=== PATIENT | male | born 1945 | race Caucasian/White ===

== ENCOUNTER 2018-03-16 05:38 | Observation (INO) ==
--- NOTE | 2018-03-10 15:26 | Anesthesiology Consultation ---
Date of Service March 10, 2018 Assessment & Plan (1) Encounter for pre-operative examination: Chart Review Chart Review: Acceptable Risk for Surgery and Patient NOT seen in Pre Admission Testing History Surgery Operation Date: 03/16/18 08:00 Proposed Procedures p Open Right Scrotal/Inguinal Hernia Repair with Mesh - Mason Lyons MD, FACS Height/Weight Height: 5 ft 10 in Weight: 66.678 kg Allergies Allergy/AdvReac Type Severity Reaction Status Date / Time No Known Allergies Allergy Unverified 03/09/18 12:24 Medications Home Medications Medication Instructions Recorded Confirmed Last Taken naproxen 500 mg PO BID PRN 02/03/18 03/09/18 Unknown rosuvastatin 5 mg PO 2XWK 02/03/18 03/09/18 Unknown triamcinolone acetonide 1 applic TOPICAL BID PRN 02/03/18 03/09/18 Unknown multivitamin 1 tab PO DAILY 03/09/18 03/09/18 Unknown oxycodone-acetaminophen 1 tab PO Q6H PRN 03/09/18 03/09/18 Unknown Past Medical History Medical History Hyperlipidemia Incarcerated hernia Past Surgical History Surgical History History of colonoscopy History of herniorrhaphy LEFT INGUINAL HERNIA Social History Smoking Status: Former smoker tobacco type: cigarettes Do You Dip or Chew Tobacco: Yes (1 CAN/ 2 WEEKS (ADVISED)) Smoking End Date: QUIT 40 YEARS AGO Hx Alcohol Use: Yes Alcohol type: beer alcohol intake frequency: a few times a week Hx Substance Use: No substance use type: does not use Testing Electrocardiogram Date: 02/03/18 Findings: + NSR @ (76) Laboratory Results 03/07/18 WBC 6.7 H/H 13.1/38.9 PLATELETS 173 SODIUM 130 (discussed with Dr. Nguyen; okay to proceed with surgery without further workup)* POTASSIUM 4.1 CHLORIDE 96 CO2 28 BUN 10 CREATININE 0.7 GLUCOSE 84
[2018-03-16] MEDS ORDERED: LR 15ML/HR IV SCH (06:00)
[2018-03-16] MEDS ORDERED: BACITRACIN INJ 50,000 UNIT VIAL ONE (07:02)
[2018-03-16] MEDS ORDERED: BUPIVACAINE 0.5 % 5 MG/1 ML MPF 30ML VIAL ONE (07:02)
[2018-03-16] MEDS ORDERED: fentaNYL citrate 100 MCG/2 ML VIAL ONE (07:08)
[2018-03-16] MEDS ORDERED: LIDOCAINE HCL 2% 2 ML VIAL/AMP(20MG/ML) INFIL ONE (07:08)
[2018-03-16] MEDS ORDERED: DEXAMETHASONE SOD INJ 4 MG/ML VIAL ONE (07:08)
[2018-03-16] MEDS ORDERED: ONDANSETRON INJ 2 MG/ML 2 ML VIAL ONE (07:08)
[2018-03-16] MEDS ORDERED: NEOSTIGMINE METHYLSULFATE 5 MG/5 ML SYR ONE (07:08)
[2018-03-16] MEDS ORDERED: MIDAZOLAM HCL 1 MG/ML 2ML VIAL ONE (07:08)
[2018-03-16] MEDS ORDERED: PROPOFOL IV EMULSION 10 MG/ML 20 ML VIAL IV ONE (07:08)
[2018-03-16] MEDS ORDERED: GLYCOPYRROLATE 0.2 MG/ML VIAL ONE (07:08)
[2018-03-16] MEDS ORDERED: PHENYLEPHRINE 100MCG/ML 5ML SYR IV PRN (07:21)
[2018-03-16] MEDS ORDERED: ONDANSETRON INJ 2 MG/ML 2 ML VIAL IV PRN ×2 (07:21→09:35)
[2018-03-16] MEDS ORDERED: ePHEDrine sulfate 50 MG/ML AMP IV PRN (07:21)
[2018-03-16] MEDS ORDERED: HYDROmorphone INJ 1 MG/ML SYRINGE IV PRN (07:21)
[2018-03-16] MEDS ORDERED: ATROPINE SULFATE 0.1 MG/ML 10ML SYR IV PRN (07:21)
[2018-03-16] MEDS ORDERED: CEFAZOLIN 1,000 MG/7.5 ML IV PUSH IV ONE (07:23)
--- NOTE | 2018-03-16 07:37 | History & Physical Bridge Note ---
Date of Service March 16, 2018 History & Physical Bridge Note I have examined the patient, reviewed the History & Physical and in the interval since the performance of the History & Physical I have noted the following changes of clinical significance: no changes noted pt marked all questions answered not sure if he completely void will insert luna due to , large size of hernia
[2018-03-16] MEDS ORDERED: CEFAZOLIN 250 MG/ML 1 GM VIAL ONE (08:02)
[2018-03-16] MEDS ORDERED: SODIUM CHLORIDE 0.9% INJ 10 ML VIAL ONE (08:02)
[2018-03-16] MEDS ORDERED: PHENYLEPHRINE 100MCG/ML 5ML SYR ONE (08:02)
[2018-03-16] MEDS ORDERED: ePHEDrine sulfate 50 MG/ML SYR ONE (08:11)
[2018-03-16] MEDS ORDERED: KETOROLAC 30 MG/ML VIAL ONE (09:17)
--- NOTE | 2018-03-16 09:17 | Post Operative Brief Note ---
Immediate Post Op Note v1 Date of Surgery March 16, 2018 Pre & Post Diagnosis Operation Date: 03/16/18 08:00 Pre-Op Diagnosis: Right Scrotal/Inguinal Hernia Post-Op Diagnosis: Right Scrotal Hernia, Indirect LIPOMA CORD Procedure Operation Date: 03/16/18 08:00 Actual Procedures p Right Open Scrotal / Inguinal Hernia Repair with Mesh(RightAND EXCISION LIPOMA CORD - Mason Lyons MD, FACS Surgeon Mason Lyons MD, FACS Tree Topper Maurisio Yates Estimated Blood Loss 20 Findings Consistent with Post-Op Diagnosis Drains Chan Catheter
[2018-03-16] MEDS ORDERED: MoRPHine SULFATE 4 MG/ML 1 ML CARP\\VIAL IV PRN ×4 (09:35→11:28)
[2018-03-16] MEDS ORDERED: OXYCODONE/ACETAMINOPHEN 5mg/325mg TAB PO PRN ×3 (09:35→11:37)
[2018-03-16] MEDS ORDERED: SODIUM CHLORIDE 0.9% 1000ML 1,000 ML IV SCH (09:45)
[2018-03-16] MEDS: fentaNYL citrate 100 MCG/2 ML VIAL IV PRN ×5 (09:47→10:10)
--- NOTE | 2018-03-16 09:50 | Operative Report ---
Post Operative Report Pre & Post Diagnosis Operation Date: 03/16/18 08:00 Pre-Op Diagnosis: Right Scrotal/Inguinal Hernia Post-Op Diagnosis: Right Scrotal Hernia, Indirect lipoma cord Procedure Operation Date: 03/16/18 08:00 Actual Procedures p Right Open Scrotal / Inguinal Hernia Repair with Mesh(Right) excision lipoma cord- Mason Lyons MD, FACS Surgeon Mason Lyons MD, FACS The patient was brought into the operating theater supine position general endotracheal anesthesia Chan catheter was inserted lower abdomen up including the scrotum was prepped Betadine solution and scrubbed and properly draped a timeout was had systemic antibiotics were given preemptive local analgesic 0.5% Marcaine was used to infiltrate the superior iliac crest incision was made parallel to the ligament larger venous complex was ligated divided dissection was taken down to the external Bleich opposed to the external ring more local was used incision was made fascia identifying the nerve trapped in the external ring and we divided we then trimmed up dividing both the nerve since it was then elevated the cord and structures which is quite considerably significant amount of scar tissue chronic inflammation really thickened hernial sac that was going down towards the scrotum once we were able to elevated sufficiently enough to the only way I could work around it was to make an incision in the indirect sac opened it and will we identified that the patient had a probably pounds of omentum down going into the scrotal area we were able then to return to completely into the abdomen held in place there sponge forceps we then dissected out the indirect sac which look like that had a division in the midportion before going to the scrotum likely may been a communicating hydrocele in the past there is no evidence of a hydrocele at this time but was very hard to free up the cord structures from the mesh from the hernial sac to the point of one area in the divided portion of the cord. The viability of the testicle which was quite small we could see to need to be viable. We then resected the hernial sac and left the distal portion in went down to the indirect area ligated space with 2-0 silk suture and divided the indirect sac patient also had a lipoma of the cord which were resected at its base and ligated. The indirect ring was sutured to be the then brought a sheet of Marlex mesh conjoined tendon superiorly shelving portion inferiorly struck the internal ring the could only accommodate the then closed the external Bleich fashion top of the cord and the mesh with 3-0 interrupted silk sutures more local was used subfascially wound was closed with 2-0 Dexon initially reynaldo for skin edges dressing was applied procedure was tolerated well estimated blood loss 20 cc catheter was removed at the end of the procedure addendum Maurisio Yates present throughout the procedure help with exposure retraction and closure Resident Care Spec Maurisio Yates Estimated Blood Loss 20 Findings Consistent with Post-Op Diagnosis Specimens hernia sac lopoma Description of Procedure done I attest to the content of the Intraoperative Record and any orders documented therein. Any exceptions are noted below.
--- NOTE | 2018-03-16 10:28 | Anesthesiology Progress Note ---
Date of Service March 16, 2018 Anesthesia Post Procedure Vital Signs Vital Signs: Temp Pulse Pulse Resp BP Pulse Ox 03/16/18 10:20 37 C 62 18 117/71 97 03/16/18 10:10 63 12 112/65 98 03/16/18 10:00 61 19 110/61 97 03/16/18 09:50 60 19 121/67 99 03/16/18 09:40 68 15 118/66 100 03/16/18 09:34 36.9 C 74 12 129/70 100 03/16/18 06:11 36.5 C 71 18 138/89 98 Pain Intensity Right Groin: Pain Intensity: 4 Notes Mental Status: alert / awake / arousable Patient Amnestic to Procedure: Yes Nausea / Vomiting: adequately controlled Pain: adequately controlled Airway Patency, RR, SpO2: stable & adequate BP & HR: stable & adequate Hydration State: stable & adequate Anesthetic Complications: no major complications apparent
[2018-03-16] MEDS ORDERED: ACETAMINOPHEN 325 MG TAB PO PRN (11:38)
[2018-03-16] MEDS ORDERED: TRIAMCINOLONE ACET 0.1% OINT 15 GM TUBE TOP PRN (13:22)
[2018-03-16] MEDS: LACTATED RINGER'S 1,000 ML IV SCH ×2 (14:03→23:16)
[2018-03-16] MEDS: OXYCODONE/ACETAMINOPHEN 5mg/325mg TAB PO PRN (23:15)
--- NOTE | 2018-03-17 07:17 | Surgery Progress Note ---
Date of Service March 17, 2018 Assessment & Plan (1) Incarcerated inguinal hernia: POD 1 RIH repair pain control better seen with Dr. Lyons recheck later, likely discharge Subjective pain control better, taking 1 Percocet, passing flatus, tolerating diet, voiding ok Physical Exam 2 Vital Signs (Past 24 Hours): Last Vital Signs Temp 36.7 C 03/17/18 03:36 Pulse 71 03/17/18 03:36 Resp 16 03/17/18 03:36 BP 101/66 03/17/18 03:36 Pulse Ox 94 03/17/18 03:36 Gastrointestinal (Abdomen): Inspection/Auscultation: + abdominal surgical incision (some old blood drainaing from in cision/in scrotum) Percussion/ Palpation: abdomen soft
[2018-03-17 07:59] LABS: Basophils # (auto) 0.01 K/uL (0-0.2); Basophils % (auto) 0.1 %; Eosinophils # (auto) 0.13 K/uL (0-0.5); Eosinophils % (auto) 1.1 %; Hematocrit (blood only) 36.4 % (42-52); Hemoglobin 12.4 g/dL (14.0-18.0); Immature Granulocytes # (auto) 0.03 K/uL (0.00-0.02); Immature Granulocytes % (auto) 0.3 %; Lymphocytes # (auto) 1.28 K/uL (1.2-3.4); Lymphocytes % (auto) 11.3 %; Mean Corpuscular Hgb Conc 34.1 g/dL (32-36); Mean Corpuscular Volume 91.5 fL (80-100); Mean Platelet Volume 9.7 fL (7.4-10.4); Monocytes # (auto) 1.49 K/uL (0.11-0.59); Monocytes % (auto) 13.2 %; Neutrophils # (auto) 8.38 K/uL (1.4-6.5); Platelet Count 171 K/uL (130-400); RDW Coefficient of Variation 13.7 % (11.5-14.5); RDW Standard Deviation 45.2 fL (36.4-46.3); Red Blood Count 3.98 M/uL (4.7-6.1); White Blood Count 11.32 K/uL (4.8-10.8)
[2018-03-17] MEDS: OXYCODONE/ACETAMINOPHEN 5mg/325mg TAB PO PRN (08:15)
[2018-03-17 08:31] LABS: BUN Creatinine Ratio 15.4 (10-20); Calcium 8.7 mg/dl (8.5-10.1); Creatinine Clr Calc Pharmacy 60.4 ml/min; Est GFR (Non-African American) 70.8; Potassium 3.6 mmol/L (3.5-5.1)
[2018-03-17] MEDS ORDERED: MULTIVITAMIN TAB PO SCH (09:00)
[2018-03-17] MEDS ORDERED: ROSUVASTATIN CALCIUM 10 MG TAB PO SCH (21:00)
--- NOTE | 2018-03-19 11:57 | Discharge Summary ---
Date of Service March 19, 2018 Admission HPI Per Admitting Provider Mr. Castellano is a 72-year-old male who was admitted to [facility] for pain control following elective open repair inguinal hernia with mesh. Principal Diagnosis Incarcerated Right Inguinal Hernia Discharge Data Allergies Allergy/AdvReac Type Severity Reaction Status Date / Time No Known Allergies Allergy Unverified 03/16/18 06:07 Procedures Performed Operation Date: 03/16/18 08:00 Actual Procedures p Right Open Scrotal / Inguinal Hernia Repair with Mesh(Right) - Mason Lyons MD, FACS Hospital Course (1) Incarcerated inguinal hernia: Operation Date: 03/16/18 08:00 Pre-Op Diagnosis: Right Scrotal/Inguinal Hernia Post-Op Diagnosis: Right Scrotal Hernia, Indirect Inguinal Hernia, lipoma cord Post-operatively, patient was admitted under observation for pain control. No acute changes overnight, pain was better controlled. Patient tolerated regular diet. Voiding without issue. Patient ok for discharge on POD #1. Return precautions reviewed. Both verbal and written discharge instructions provided. Patient to follow-up in General Surgery clinic for staple removal. Total Time Total Time Spent Total Time Spent (In Minutes): 5 Discharge Plan Discharge Items Patient Disposition: Home - Self-Care Reason For Visit: Right Scrotal/Inguinal Hernia Discharge Diagnosis: Right Scrotal/Inguinal Hernia Discharge Goals: Decrease discomfort and Improve function Activity: As commented below Lifting: No more than 10 pounds Bathing Comment: May shower in 24 hrs, but do not soak or scrub your incision. Sexual Activity: Wait until after follow-up appointment Exercise/Sports: Wait until after follow-up appointment Driving/Machine Use: Resume 3 days after discharge Non-emergency contact: Surgeon Call non-emergency contact if: you have any medication questions, your pain is not controlled, your temperature is above 101.5, your wound has increased redness and your wound has increased drainage Follow-up/Referrals: Mason Lyons MD, FACS [Surgeon] - (Please follow-up in the General Surgery clinic for staple removal as scheduled. Please call the General Surgery clinic at [phone] with any questions or concerns. ) Ivis Palacios PA-C [Primary Care Provider] - Diet: Regular Addtl Provider Instructions: You have a gauze dressing over your incision. You may remove this dressing in 24 hrs and shower. Please make sure that your skin is dry before you put a new clean dressing over top of your incision. Do not soak or scrub your incision. Please do not submerge your incision in any pools, baths, or hot tubs. You have reynaldo that will be removed at the General Surgery clinic. Prescriptions: Continue triamcinolone acetonide 0.1 % ointment 1 applic Topical BID PRN (Reason: Rash) RF: 0 naproxen 500 mg Tablet 500 mg PO BID PRN (Reason: Pain) RF: 0 rosuvastatin 10 mg Tablet 5 mg PO 2XWK RF: 0 multivitamin Tablet 1 tab PO DAILY RF: 0 oxycodone-acetaminophen 5-325 mg Tablet 1 tab PO Q6H PRN (Reason: Pain) RF: 0 Visit Report Forms: [facility] Discharge Orders: Discharge Order (Routine); Ordered 03/17/18 Ordered By: Alfie Ward Admission Data Admit Date/Time: 03/16/18 11:28 Attending Provider: Mason Lyons Admit Provider: Mason Lyons Primary Care Provider: Ivis Palacios Service: Medical Other Interventions: Discharge Summary Assessment (RN) Last Done: 03/17/18 11:01 Pending Studies at Discharge: No DC Date/Time DO NOT enter until pt leaves facility: 03/17/18 13:00
== END 2018-03-17 13:00 | disposition home or self-care (01) ==
LOC: 3N 05:38 → ASU 05:38